=== PATIENT | female | born 2000 | race Caucasian/White ===

== ENCOUNTER 2022-06-30 09:10 | Outpatient (CLI) | payer OTHER, SELFPAY ==
[2022-06-30 12:05] LABS: Chlamydia DNA Amplified* NOT DETECTED (No Detected); GC DNA Amplified* NOT DETECTED (No Detected)
== END 2022-06-30 09:11 | disposition home or self-care (01) ==
LOC: NFLDREF 09:11
PROVIDERS: Visit Provider Obstetrics & Gynecology
DX: Z00.00 Encounter for general adult medical examination without abnormal findings (principal); Z11.3 Encounter for screening for infections with a predominantly sexual mode of transmission
CPT/HCPCS: 0353U

== ENCOUNTER 2022-07-23 09:36 | Outpatient (CLI) | payer OTHER, SELFPAY | END 2022-07-23 09:37 | disposition home or self-care (01) | LOC: NFLDREF 07-25 07:41 | PROVIDERS: Visit Provider Obstetrics & Gynecology | DX: Z31.41 Encounter for fertility testing (principal); Z11.3 Encounter for screening for infections with a predominantly sexual mode of transmission; Z13.29 Encounter for screening for other suspected endocrine disorder; Z86.73 Personal history of transient ischemic attack (TIA), and cerebral infarction without residual deficits | CPT/HCPCS: 80061; 82670; 83001; 84146; 84443; 86592; 86703; 86803; 87340 ==

== ENCOUNTER 2022-07-28 10:05 | Outpatient (CLI) | payer OTHER, SELFPAY | END 2022-07-28 10:06 | disposition home or self-care (01) | LOC: NFLDREF 07-30 15:29 | PROVIDERS: Visit Provider Obstetrics & Gynecology | DX: R79.89 Other specified abnormal findings of blood chemistry (principal) | CPT/HCPCS: 84146 ==